=== PATIENT | female | born 1975 | race Two or more races ===

== ENCOUNTER 2022-04-29 18:57 | Emergency (ER) | payer OTHER ==
[~2022-04-29] VITALS: Ht 165.1 cm; Wt 71.2 kg
--- NOTE | 2022-04-29 19:05 | NUR ---
PT BIBSELF TOGETHER WITH HER MOTHER. WITH C/O POSSIBLE FOOD POISONING & UTI. PLACED IN ROOM 3. PT IS AAOX4, - SOB, -CP, SKIN WARM TO TOUCH WITH GOOD TURGOR. VITALS CHECKED.
--- NOTE | 2022-04-29 20:11 | NUR ---
URINE SPECIMEN SENT TO LAB
[2022-04-29 20:30] LABS: BILIRUBIN,URINE NEGATIVE (NEGATIVE); COLOR,URINE YELLOW (YELLOW); LEUKOCYTE ESTERASE ,URINE NEGATIVE (NEGATIVE); NITRITE, URINE NEGATIVE (NEGATIVE); PROTEIN,URINE NEGATIVE (NEGATIVE); UGLUCOSE NEGATIVE (NEGATIVE); UROBILINOGEN,URINE 0.2 EU/dL (0.2)
[2022-04-29 20:46] LABS: BACTERIA,URINE Few /HPF (None Seen); SQUAMOUS EPITHELIAL CELL,UR Few /HPF (None Seen); WBC,URINE 0-2 /HPF (0-3)
[2022-04-29 20:47] LABS: CALCIUM OXALATE CRYSTALS,UR Few /HPF (None Seen)
--- NOTE | 2022-04-29 21:20 | NUR ---
SEEN BY MD AT BEDSIDE AND EXPLAINED TO THEM THE - DRUG RESULTS. MOTHER IS UPSET COZ SHE DOES NOT BELIEVE THAT THEY ARE NOT BEING DRUGGED. PATIENT LEFT WITH MOM WITHOUT BRINGING DISCHARGE INSTRUCTIONS.
[2022-04-29 21:47] VITALS: BP 143/84
== END 2022-04-29 21:47 | disposition home or self-care (01) ==
LOC: ER 19:04
DX: R41.0 Disorientation, unspecified (principal); R30.0 Dysuria; E11.9 Type 2 diabetes mellitus without complications
CPT/HCPCS: 81001

== ENCOUNTER 2022-07-26 21:06 | Emergency (ER) | payer OTHER ==
[~2022-07-26] VITALS: Ht 170.2 cm; Wt 113.4 kg
--- NOTE | 2022-07-26 21:49 | NUR ---
BIBMother C/O "Weird throat feeling", chest pain, and feeling "off" after drinking [employer]. Pt awake and alertx4 breathing unlabored. placed on monitor and v/s wnl.
--- NOTE | 2022-07-26 22:18 | NUR ---
RAD AT BED SIDE
--- NOTE | 2022-07-26 23:17 | NUR ---
BLOOD DRAWN AND SENT TO LAB
--- NOTE | 2022-07-26 23:22 | NUR ---
UPDATED ALYZE MOTHER [phone]
[2022-07-26 23:33] LABS: BASOPHILS # (AUTO) 0.1 K/uL (0.0-0.2); BASOPHILS % (AUTO) 0.9 % (0.0-2.0); EOSINOPHILS % (AUTO) 1.9 % (0.0-6.0); HEMATOCRIT 37 % (33-45); HEMOGLOBIN 12.3 g/dL (11.5-14.8); LYMPHOCYTES # (AUTO) 1.8 K/uL (0.8-4.8); MEAN CORPUSCULAR HGB CONC 33 g/dl (31.0-36.0); MEAN CORPUSCULAR VOLUME 83 fL (82-100); MONOCYTES # (AUTO) 0.5 K/uL (0.1-1.30); MONOCYTES % (AUTO) 7.2 % (2.0-12.0); NEUTROPHILS # (AUTO) 4.3 K/uL (1.8-8.9); PLATELET COUNT (AUTO) 331 K/uL (150-450); RED BLOOD CELL COUNT(AUTO) 4.52 MIL/uL (4.0-5.2); WHITE BLOOD COUNT (AUTO) 6.8 K/uL (4.3-11.0)
[2022-07-26 23:49] LABS: CARBON DIOXIDE 30 mmol/L (21-32); CHLORIDE 107 mmol/L (98-107); GLUCOSE 107 mg/dL (74-106); POTASSIUM 3.2 mmol/L (3.5-5.1); SODIUM SERUM 140 mmol/L (136-145); UREA NITROGEN, BLOOD 8 mg/dL (7-18)
[2022-07-27 00:02] LABS: ALANINE AMINOTRANSFERASE 16 U/L (12-78); ALBUMIN 3.6 g/dL (3.4-5.0); ALKALINE PHOSPHATASE 80 U/L (46-116); ASPARTATE AMINOTRANSFERASE 14 U/L (15-37); BILIRUBIN,DIRECT 0.1 mg/dL (0.0-0.2); BILIRUBIN,TOTAL 0.2 mg/dL (0.2-1.0); TOTAL PROTEIN, SERUM 6.9 g/dL (6.4-8.2)
--- NOTE | 2022-07-27 00:32 | NUR ---
Patient discharged to home in stable condition. Written and verbal after care instructions given. Patient verbalizes understanding of instruction.IV removed. Catheter intact and site benign. Pressure and 4x4 applied to site. No bleeding noted.
[2022-07-27 00:34] VITALS: BP 161/92
== END 2022-07-27 00:35 | disposition home or self-care (01) ==
LOC: ER 21:08
DX: R42 Dizziness and giddiness (principal); I10 Essential (primary) hypertension; E11.9 Type 2 diabetes mellitus without complications; F31.9 Bipolar disorder, unspecified
CPT/HCPCS: 36415; 71045-TC; 80048-TC; 80076-TC; 83880; 84484-TC; 84702-TC; 85025-TC